=== PATIENT | male | born 1970 | race Caucasian/White ===

== ENCOUNTER 2016-08-09 21:00 | Inpatient (IN) | payer OTHER ==
--- NOTE | ~2016-08-09 | PN ---
Unit #: [id number] #: [id number] Patient: MICHAEL KAN [id number] [facility] [address] [place] [address] [id number] MR#: [id number] NAME: MICHAEL KAN. ROOM: P210 Age: 46 Sex: M Admission Date: 08/10/2016 : 1970 Attending Physician: Faith Whipple M.D. Admitting Physician: Faith Whipple M.D. Primary Care Physician: Primary Care Physician Lilian MAE PROGRESS NOTES DATE OF SERVICE 08/12/2016 DISCUSSION Mr. Kan is a 46-year-old white male who was seen today. Chart was reviewed and case was discussed with the staff. He has been anxious, withdrawn, and rather seclusive to himself. Meanwhile, he has been cooperative with the treatment recommendations and has been taking the medications and tolerating them fairly well with no reported side effects. MENTAL STATUS EXAMINATION Middle-aged white male who is casually dressed with fair personal hygiene, appears to be in no acute distress or discomfort. He was awake and alert on interaction with intact orientation. His mood is anxious with a congruent affect. He denies any suicidal or homicidal ideations. His insight and judgment remain slightly impaired. TREATMENT PLAN 1. We will continue him on his current treatment protocol. We will monitor his response to the medications and make further adjustments as needed. 2. We will continue to follow up. Dictated by... Faith Whipple M.D. IAA/bzg TD: 08/13/2016 07:24 JOB #: [id number] [facility] PROGRESS NOTES Page 1 of 1 X Faith Whipple MD PROGRESS NOTE
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
--- NOTE | ~2016-08-09 | PN ---
Unit #: [id number] #: [id number] Patient: MICHAEL LOPEZ [id number] [facility] [address] [place] [address] [id number] MR#: [id number] NAME: MICHEAL LOPEZ. ROOM: P210 Age: 46 Sex: M Admission Date: 08/10/2016 : 1970 Attending Physician: Faith Whipple M.D. Admitting Physician: Faith Whipple M.D. Primary Care Physician: Primary Care Physician Lilian MAE PROGRESS NOTES DATE OF SERVICE: 08/11/2016 SUBJECTIVE Mr. Lopez is a 46-year-old white male who was seen today and chart was reviewed, and case was discussed with the staff. He has been anxious, withdrawn, though has not shown any agitation, irritability, or behavioral problems, and has been cooperative with treatment recommendations and has been taking the medications and tolerating them fairly well with no reported side effects. MENTAL STATUS EXAMINATION Middle-aged white male who was casually dressed with fair personal hygiene, appears to be in no acute distress or discomfort. He was awake and alert on interaction with intact orientation. His mood was anxious with a congruent affect. His speech was slow and goal directed. He denies any suicidal or homicidal ideations, and also denies any auditory or visual hallucinations. His insight and judgment remain slightly impaired. TREATMENT PLAN 1. We will continue him on his current medications and treatment protocol. We will monitor his response to medications and make further adjustments as needed. 2. We will continue to follow up. Dictated by... Zabrina Saucedo/ramesh TD: 08/11/2016 17:10 JOB #: [id number] Unit #: [id number] #: [id number] Patient: MICHAEL LOPEZ PROGRESS NOTES Page 1 of 1 X Faith Whipple MD PROGRESS NOTE
--- NOTE | ~2016-08-09 | DS ---
Unit #: [id number] #: [id number] [facility] [id number] [facility] [address] [place] [address] [id number] MR#: [id number] NAME: MICHAEL LOPEZ. ROOM: P210 Age: 46 Sex: M Admission Date: 08/10/2016 : 1970 Discharge Date: 08/13/2016 Attending Physician: Faith Whipple M.D. Primary Care Physician: Primary Care Physician No DISCHARGE SUMMARY IDENTIFYING DATA Mr. Lopez is a 46-year-old white male who is a resident of [place], [place] and was brought to the hospital accompanied by his mother. DISCHARGE DIAGNOSES Psychiatric: Major depressive disorder, recurrent, moderate, without psychotic features; alcohol dependence, moderate; cannabis abuse, moderate; methamphetamine abuse, moderate; opioid abuse, moderate. Medical: History of aortic valve replacement. Stressors: Mild psychosocial stressors. HISTORY OF PRESENT ILLNESS Please see initial psychiatric evaluation for details. PAST PSYCHIATRIC HISTORY Please see initial psychiatric evaluation for details. PAST MEDICAL HISTORY Please see initial psychiatric evaluation for details. HOSPITAL COURSE The patient was admitted to the adult chemical dependency unit at [facility]nam [facility] and was oriented to the hospital environment. Routine p.r.n. medications were initiated, and he was started back on his home medications and alcohol detox protocol was initiated as well and he was closely monitored. He was taking the medications regularly and was tolerating them fairly well and was able to come out of the detox without any complications and was willing to continue treatment on an outpatient basis, and as such, it was decided that he will be discharged home and will continue treatment on an outpatient basis. DISCHARGE MEDICATIONS Celexa 20 mg a day for depression. DISCHARGE CONDITION Stable. PROGNOSIS Fair. Dictated by... Unit #: [id number] #: [id number] Patient: MICHAEL LOPEZ Faith Whipple M.D. IAA/modl TD: 08/13/2016 07:09 JOB #: [id number] DISCHARGE SUMMARY Page 1 of 1 X Faith Whipple MD X DISCHARGE SUMMARY
--- NOTE | ~2016-08-09 | CO ---
Unit #: [id number] #: [id number] Patient: MICHAEL LOPEZ [id number] [place] [address] [id number] MR#: [id number] NAME: MICHAEL LOPEZ. ROOM: P210 Age: 46 Sex: M Admission Date: 08/10/2016 : 1970 Attending Physician: Faith Whipple M.D. Primary Care Physician: Primary Care Physician No Consultation Date: 08/10/2016 CONSULTATION REPORT OPAL Garnica is a 46-year-old with history of aortic valve replacement in 2006. He is maintained on Coumadin. We have been asked to follow his PT/INRs. At time of admission, 08/10/2016; PT/INR was 20.5/1.9. PT/INRs were followed on daily basis and Coumadin was adjusted accordingly. Dictated by... Nicole Ibrahim P.A.-C. for Zabrina Avitia/ramesh TD: 08/13/2016 16:27 JOB #: [id number] CONSULTATION REPORT Page 1 of 1 X Nicole Ibrahim CONSULTATION REPORT
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
[2016-08-10 09:39] LABS: BASOPHIL% 0.2 % (0-2.5); EOSINOPHIL# 0.2 X10e3 (0-0.7); EOSINOPHIL% 1.9 % (0.0-7.0); HEMATOCRIT 41.4 % (38.0-50.0); HEMOGLOBIN 13.6 gm/dL (13.0-16.0); LYMPHOCYTE% 18.4 % (17.0-45.0); MEAN CORPUSCULAR HEMOGLOBIN 29.9 PG (28-34); MEAN CORPUSCULAR HGB CONC 32.9 g/dL (30-36); MONOCYTE# 0.8 X10e3 (0-1.0); MONOCYTE% 7.5 % (3.0-12.0); NEUTROPHIL# 7.9 X10e3 (1.5-7.1); PLATELET COUNT 348 X10e3 (140-420); RED BLOOD COUNT 4.55 X10e (3.90-5.60); RED CELL DISTRIBUTION WIDTH 13.9 % (11.0-15.5)
[2016-08-10 09:49] LABS: INR 1.9; PROTHROMBIN TIME (PATIENT) 20.5 SECONDS (9.6-11.5)
[2016-08-10 09:57] LABS: DIFF IND NO
[2016-08-11 09:49] LABS: INR 2.2; PROTHROMBIN TIME (PATIENT) 23.4 SECONDS (9.6-11.5)
[2016-08-11 09:49] LABS: URINE APPEARANCE TURBID; URINE BILIRUBIN NEG (NEG); URINE BLOOD TRACE (NEG); URINE COLOR DK YELLOW; URINE GLUCOSE NEG (NEG); URINE KETONE NEG (NEG); URINE LEUKOCYTE ESTERASE NEG (NEG); URINE NITRATE NEG (NEG); URINE PROTEIN NEG (NEG); URINE UROBILINOGEN 0.2 MG/DL (NEG)
[2016-08-11 09:53] LABS: URINE BACTERIA AUWI NEG (NEGATIVE); URINE SQUAMOUS EPITHELIAL CELL NONE SEEN /[HPF]; UWBCS1 AUWI 0-2 (0-5)
[2016-08-11 10:41] LABS: AMPHETAMINE NEG (NEG); BARBITURATES NEG (NEG); BENZODIAZEPINES NEG (NEG); COCAINE POS (NEG); MARIJUANA NEG (NEG); OPIATES NEG (NEG); TRICYCLIC ANTIDEPRESSANTS POS (NEG); U METHADONE NEG (NEG)
[2016-08-12 09:54] LABS: INR 3.1; PARTIAL THROMBOPLASTIN TIME 43.4 SECONDS (23.5-31.3); PROTHROMBIN TIME (PATIENT) 33.7 SECONDS (9.6-11.5)
[2016-08-13 09:46] LABS: INR 2.7; PROTHROMBIN TIME (PATIENT) 29.1 SECONDS (9.6-11.5)
== END 2016-08-13 11:25 | DRG 885 ==
LOC: P2S 08-10 01:33
PROVIDERS: Physician Assistant Medical; Psychiatry & Neurology Psychiatry
PROC: HZ2ZZZZ Detoxification Services for Substance Abuse Treatment (ICD-10-PCS; principal; 2016-08-10)
DX: F33.1 Major depressive disorder, recurrent, moderate (principal); F11.20 Opioid dependence, uncomplicated; I10 Essential (primary) hypertension; F14.20 Cocaine dependence, uncomplicated; F15.20 Other stimulant dependence, uncomplicated; E66.9 Obesity, unspecified; Z95.2 Presence of prosthetic heart valve; F17.210 Nicotine dependence, cigarettes, uncomplicated; F10.20 Alcohol dependence, uncomplicated
CPT/HCPCS: 80307; 81003; 85025; 85610; 85730; 86592